=== PATIENT | male | born 1955 | race African-American/Black ===

== ENCOUNTER 2020-12-27 12:29 | Inpatient (IN) | payer OTHER, SELFPAY ==
[~2020-12-27] VITALS: Ht 170.2 cm; Wt 79.4 kg
[2020-12-27 12:51] VITALS: BP_SYST 146
--- NOTE | 2020-12-27 12:51 | NUR ---
Placed in room 8 . Placed on school bus monitor, blood pressure machine and pulse oximeter. To gown for exam. Side rails up.
--- NOTE | 2020-12-27 12:51 | NUR ---
Pt bib ALS with complaint of SOB Xtoday with oxygen saturation below 90% at home. Pt was brought in on 5 L NC saturating at 92%. Breathing is even and unlabored. Pt denies any pain. Pt non febrile at 98 oral temperature. Pt is AAOX4 speaking full sentences. Resting comfortably in [facility] sitting in fowlers position. Pt is known covid positive since 12/13/20. Pt denies cough. Pt had syncopal episode on tuesday and was seen at [facility] and was sent home with s2 steri strips to [place] from small laceration. Pt was taken off oxygen for oxygen challenge and desaturated to 86% titrated to 2 L NC saturaring at 88% titrated back to 5 L NC saturating 92%, BP 132/74, HR 76, RR 20. Pt attached to monitor in [facility].
--- NOTE | 2020-12-27 12:52 | NUR ---
ER at bedside examining patient.
--- NOTE | 2020-12-27 12:53 | NUR ---
Blood collected and sent to lab. Covid/flu specimen collected and sent to lab.
--- NOTE | 2020-12-27 12:53 | NUR ---
# 20 gauge angiocath placed to LAC. Use of asceptic technique. Opsite placed over site. Blood return noted. Blood for lab drawn from site. Flushed with 10 cc of normal saline. No evidence of infiltration noted. Patient tolerated well.
[2020-12-27 13:06] LABS: BASOPHILS % (AUTO) 0.2 % (0.0-2.0); EOSINOPHILS % (AUTO) 0.2 % (0.0-4.0); HEMATOCRIT 46.9 % (36-54); HEMOGLOBIN 15.6 g/dL (14.0-18.0); LYMPHOCYTES # (AUTO) 1.3 K/uL (1.0-5.5); LYMPHOCYTES % (AUTO) 11.7 % (20.5-51.5); MEAN CORPUSCULAR HEMOGLOBIN 27 pg (27-31); MEAN CORPUSCULAR HGB CONC 33 % (32-36); MEAN CORPUSCULAR VOLUME 83 fL (79.0-98.0); MONOCYTES # (AUTO) 0.5 K/uL (0.0-1.0); MONOCYTES % (AUTO) 4.6 % (1.7-9.3); NEUTROPHILS # (AUTO) 9.1 K/uL (1.8-7.7); NEUTROPHILS % (AUTO) 83.3 % (40.0-70.0); PLATELET COUNT (AUTO) 420 K/uL (130-430); RED BLOOD CELL COUNT(AUTO) 5.68 MIL/uL (4.2-6.2); RED CELL DISTRIBUTION WIDTH 14.3 % (9.0-15.0); WHITE BLOOD COUNT (AUTO) 10.9 K/uL (4.8-10.8)
[2020-12-27 13:18] LABS: CALCIUM 8.8 mg/dL (8.4-11.0); CREATININE 1.08 mg/dL (0.55-1.30); POTASSIUM 3.8 mmol/L (3.5-5.1)
[2020-12-27 13:20] LABS: TOTAL BILIRUBIN 0.4 mg/dL (0.0-1.0)
[2020-12-27 13:29] LABS: PROTHROMBIN TIME 10.2 SECS (9.5-12.5)
--- NOTE | 2020-12-27 13:38 | NUR ---
X-ray at bedside.
--- NOTE | 2020-12-27 14:15 | NUR ---
[facility] called back to speak to Dr. Rees regarding pt status.
[2020-12-27] MEDS ORDERED: DEXAMETHASONE SOD PHOSPHATE 10 MG/ML VIAL IVP ONE (14:30)
--- NOTE | 2020-12-27 14:30 | NUR ---
Patient will be admitted to care of . Admitted to Telemetry unit. Will go to room pending. Belongings list completed. Complete and up to date summary report printed. SBAR report to be given at bedside with opportunity for questions.
--- NOTE | 2020-12-27 14:30 | NUR ---
Called for bed assignment. No bed available at this time.
--- NOTE | 2020-12-27 14:54 | NUR ---
CT consent signed.
[2020-12-27 15:36] VITALS: BP_SYST 136
--- NOTE | 2020-12-27 15:36 | NUR ---
Pt given Max lunch tray and water.
--- NOTE | 2020-12-27 15:47 | NUR ---
Patient transported to radiology via gurney, accompanied by olivier.
--- NOTE | 2020-12-27 16:03 | NUR ---
Pt back from CT. Reattached to monitor.
--- NOTE | 2020-12-27 16:30 | NUR ---
Spoke with Dr. Santana about pt wishes to sign out against medical advice.
--- NOTE | 2020-12-27 16:59 | NUR ---
Dr. Rees at bedside.
[2020-12-27] MEDS ORDERED: LEVO750T45 PO (17:16)
[2020-12-27] MEDS ORDERED: DEC1 PO (17:16)
--- NOTE | 2020-12-27 17:30 | NUR ---
Pt wants to sign out against medical advice. Dr. alicia spoke with pt about risks of leaving [facility]. Pt is AAOX4 and states he is fully aware of the risks and he wished to treat himself at home.
--- NOTE | 2020-12-27 17:48 | NUR ---
Patient does not wish to proceed with medical care recommended by . Patient given information related to possible complications, up to and including , which could occur as a result of leaving hospital at this time. Patient verbalizes understanding of risks involved leaving against medical advice. Patient has signed AMA form.
== END 2020-12-27 17:48 | disposition left against medical advice (07) | DRG 189 ==
LOC: SED 12:29 → STU 14:29
PROVIDERS: ADMIT Internal Medicine; ATTEND Internal Medicine
DX: J96.01 Acute respiratory failure with hypoxia (principal); Z20.822 Contact with and (suspected) exposure to COVID-19; Z53.29 Procedure and treatment not carried out because of patient's decision for other reasons; Z88.0 Allergy status to penicillin; Z88.8 Allergy status to other drugs, medicaments and biological substances; Z79.899 Other long term (current) drug therapy
CPT/HCPCS: 36415; 71045; 71275; 76376; 80053; 83880; 84484; 85025; 85379; 85610-TC; 85730-TC; 86710; 93005; 96365; 96375; 99285; G0378; J1100; J1956